=== PATIENT | male | born 1995 | race Caucasian/White ===

== ENCOUNTER 2022-02-04 06:38 | Emergency (ER) | payer SELFPAY ==
[~2022-02-04] VITALS: Ht 180.3 cm; Wt 72.6 kg
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
--- NOTE | 2022-02-04 06:55 | NUR ---
RN & NICKEL OPERATOR AT PT'S BEDSIDE TO CLEAN LAC ON PT'S FOREHEAD
[2022-02-04] MEDS ORDERED: TDAP [DIPH/PERTUSSIS/TET] 0.5 ML VIAL IM ONE ×2 (07:11→07:30)
--- NOTE | 2022-02-04 08:04 | NUR ---
Patient discharged to home in stable condition. Written and verbal after care instructions given. Patient verbalizes understanding of instruction.
[2022-02-04 08:05] VITALS: BP 128/70
== END 2022-02-04 08:05 | disposition home or self-care (01) ==
LOC: ER 06:40
DX: S00.81XA Abrasion of other part of head, initial encounter (principal); Z60.2 Problems related to living alone; V49.49XA Driver injured in collision with other motor vehicles in traffic accident, initial encounter; Y93.89 Activity, other specified; Y92.413 State road as the place of occurrence of the external cause; Y99.8 Other external cause status
CPT/HCPCS: 72050-TC; 90715